=== PATIENT | male | born 1990 | race Caucasian/White ===

== ENCOUNTER 2023-03-13 17:31 | Emergency (ER) | payer OTHER ==
[~2023-03-13] VITALS: Ht 170.2 cm; Wt 95.0 kg
[2023-03-13 17:54] VITALS: BP 142/91
[2023-03-13 22:02] LABS: APPEARANCE,URINE CLEAR (CLEAR); BILIRUBIN,URINE NEGATIVE (NEGATIVE); BLOOD, URINE NEGATIVE (NEGATIVE); COLOR,URINE YELLOW (YELLOW); LEUKOCYTE ESTERASE ,URINE NEGATIVE (NEGATIVE); NITRITE, URINE NEGATIVE (NEGATIVE); UGLUCOSE NEGATIVE (NEGATIVE)
[2023-03-13] MEDS ORDERED: CEPH-588 PO (22:35)
[2023-03-13] MEDS ORDERED: DOXY-690 PO (22:35)
[2023-03-13] MEDS ORDERED: cefTRIAXone 500 MG in LIDOCAINE MPF 1% 1 ML IM ONE (22:35)
[2023-03-13] MEDS ORDERED: LIDOCAINE MPF 1% 5 ML ONE (23:08)
[2023-03-13] MEDS ORDERED: cefTRIAXone 500 MG VIAL ONE (23:08)
--- NOTE | 2023-03-13 23:20 | NUR ---
Patient discharged with v/s stable. Written and verbal after care instructions given and explained. Patient alert, oriented and verbalized understanding of instructions. Ambulatory with steady gait. All questions addressed prior to discharge. ID band removed. Patient advised to follow up with PMD. Rx of KEFLEX AND DOXYCYCLINE given. Patient educated on indication of medication including possible reaction and side effects. Opportunity to ask questions provided and answered.
== END 2023-03-13 23:20 | disposition home or self-care (01) ==
LOC: MED 17:31
DX: N49.2 Inflammatory disorders of scrotum (principal)
CPT/HCPCS: 76870; 81003; 86592; 86703; 87491; 96372; 99285; J0696; J2001; Q0092

== ENCOUNTER 2023-09-28 14:53 | Emergency (ER) | payer OTHER ==
[~2023-09-28] VITALS: Ht 172.7 cm; Wt 95.3 kg
[~2023-09-28 14:53] MED LIST: CEPH-588 PO; DOXY-690 PO
[2023-09-28 15:05] VITALS: BP 161/89; PULSE 112; RESP 17; TEMP 97.4; O2SAT 99
[2023-09-28] MEDS ORDERED: MORPHINE SULFATE 4 MG/ML SYR IVP ONE (15:25)
[2023-09-28] MEDS ORDERED: ONDANSETRON 4 MG/2 ML VIAL IVP ONE (15:25)
[2023-09-28] MEDS ORDERED: FAMOTIDINE 20 MG/2 ML VIAL IVP ONE (15:25)
[2023-09-28] MEDS ORDERED: NACL 0.9% 1,000 ML IV ONE (15:25)
[2023-09-28 15:30] LABS: BASOPHILS # (AUTO) 0.1 K/uL (0.00-0.22); BASOPHILS % (AUTO) 0.6 % (0.0-2.0); EOSINOPHILS # (AUTO) 0.1 K/uL (0-0.4); EOSINOPHILS % (AUTO) 0.6 % (0.0-4.0); HEMATOCRIT 41.9 % (36-52); HEMOGLOBIN 14.1 g/dL (12.0-18.0); LYMPHOCYTES # (AUTO) 0.9 K/uL (2.0-11.5); MEAN CORPUSCULAR HEMOGLOBIN 30 pg (27-31); MEAN CORPUSCULAR HGB CONC 34 g/dL (33-37); MEAN CORPUSCULAR VOLUME 89.6 fL (80-94); MONOCYTES # (AUTO) 0.3 K/uL (0.8-1.0); MONOCYTES % (AUTO) 2.7 % (1.7-9.3); NEUTROPHILS # (AUTO) 9.2 K/uL (1.8-7.7); NEUTROPHILS % (AUTO) 87.1 % (42.2-75.2); PLATELET COUNT (AUTO) 270 K/uL (140-450); RED BLOOD CELL COUNT(AUTO) 4.68 MIL/uL (4.20-6.10); RED CELL DISTRIBUTION WIDTH 13.6 % (11.6-13.7); WHITE BLOOD COUNT (AUTO) 10.5 K/uL (4.8-10.8)
[2023-09-28 15:38] LABS: APPEARANCE,URINE CLEAR (CLEAR); BILIRUBIN,URINE NEGATIVE (NEGATIVE); BLOOD, URINE NEGATIVE (NEGATIVE); COLOR,URINE YELLOW (YELLOW); LEUKOCYTE ESTERASE ,URINE NEGATIVE (NEGATIVE); NITRITE, URINE NEGATIVE (NEGATIVE); PH,URINE 7.5 (5.0-9.0); PROTEIN,URINE NEGATIVE (NEGATIVE); UGLUCOSE NEGATIVE (NEGATIVE); UROBILINOGEN,URINE 0.2 EU/dL (0.2 - 1)
[2023-09-28 15:51] LABS: ALBUMIN 4.1 g/dL (3.4-5.0); ANION GAP 10.9 (8-16); CALCIUM 8.7 mg/dL (8.5-10.1); CARBON DIOXIDE 30.2 mmol/L (21-32); POTASSIUM 4.1 mmol/L (3.5-5.1); TOTAL BILIRUBIN 0.4 mg/dL (0.0-1.0); TOTAL PROTEIN, SERUM 7.7 g/dL (6.4-8.2)
[2023-09-28] MEDS ORDERED: ALUMINUM HYD/MAG/SIMETHICONE 30 ML UDC PO ONE (16:45)
[2023-09-28] MEDS ORDERED: DICYCLOMINE HCL LIQUID 20 MG, ALUMINUM HYD/MAG/SIMETHICONE 30 ML, LIDOCAINE VISCOUS 2% ... PO ONE ×3 (16:45)
[2023-09-28] MEDS ORDERED: KETOROLAC 30 MG/ML VIAL IVP ONE (16:55)
[2023-09-28] MEDS ORDERED: DICYCLOMINE HCL LIQUID 10 MG/5 ML UDC ONE (17:18)
[2023-09-28] MEDS ORDERED: ALUMINUM HYD/MAG/SIMETHICONE 30 ML UDC ONE (17:18)
[2023-09-28 17:31] LABS: AMPHETAMINE, URINE POSITIVE ng/ml (NEG <=1000); BARBITURATE, URINE NEGATIVE ng/ml (NEG <=200); BENZODIAZEPINE, URINE NEGATIVE ng/mL (NEG <=200); CANNABINOID, URINE NEGATIVE ng/mL (NEG <=50); COCAINE, URINE NEGATIVE ng/mL (NEG <=300); OPIATE, URINE POSITIVE ng/mL (NEG <=2000); PHENCYCLIDINE SCREEN,URINE NEGATIVE ng/mL (NEG <=25)
[2023-09-28] MEDS ORDERED: FAMO-92 PO (18:45)
[2023-09-28] MEDS ORDERED: ACET-10509 PO (18:45)
[2023-09-28] MEDS ORDERED: NAPR-54 PO (18:45)
[2023-09-28 19:16] VITALS: BP 134/62; PULSE 90; RESP 20; TEMP 98.2; O2SAT 97
== END 2023-09-28 19:15 | disposition home or self-care (01) ==
LOC: MED 14:53
DX: K80.50 Calculus of bile duct without cholangitis or cholecystitis without obstruction (principal); K80.20 Calculus of gallbladder without cholecystitis without obstruction; F15.90 Other stimulant use, unspecified, uncomplicated; Z79.899 Other long term (current) drug therapy
CPT/HCPCS: 36415; 74176; 76705; 80053; 80305; 81003; 83690; 85025; 96361; 96374; 96375; 99285; J1885; J2270; J2405; J3490; J7030